=== PATIENT | female | born 1940 | race Caucasian/White ===

== ENCOUNTER 2017-04-29 17:59 | Inpatient (IN) | payer MEDICARE ==
[~2017-04-29] VITALS: Ht 157.5 cm; Wt 76.0 kg
[2017-04-29 18:11] VITALS: BP 129/97; PULSE 89; RESP 18; O2SAT 97
[2017-04-29] MEDS ORDERED: EMPA1TAB PO (18:26)
[2017-04-29] MEDS ORDERED: MULTTAB67 PO (18:26)
[2017-04-29] MEDS ORDERED: CALC1TAB87 PO (18:26)
[2017-04-29] MEDS ORDERED: ALBI1INJ2 SQ (18:26)
[2017-04-29] MEDS ORDERED: FERR324T4 PO (18:26)
[2017-04-29] MEDS ORDERED: GLUC100013 PO (18:26)
[2017-04-29] MEDS ORDERED: OMEP20TA93 PO (18:26)
[2017-04-29] MEDS ORDERED: LOVA40TA PO (18:26)
[2017-04-29] MEDS ORDERED: LISI-515 PO (18:26)
[2017-04-29] MEDS ORDERED: METF1000 PO (18:26)
[2017-04-29] MEDS ORDERED: GLIM4TAB PO (18:26)
--- NOTE | 2017-04-29 18:56 | PD ---
HPI Chief Complaint: Abdominal Pain Time Seen by Provider: 18:09 Travel History International Travel<30 days: No Contact w/Intl Traveler<30days: No Traveled to known affect area: No History of Present Illness HPI This patient has had 3 days of nausea vomiting and diarrhea. She went to an urgent care center a few days ago got nausea medicine. She went back today because she developed generalized weakness and also complains of epigastric pain. Severity is moderate. I advised her to come to the ER. No alleviating factors. No exacerbating factors. She has not had any chest pain. PFSH Past Medical History Cardiovascular Problems: Yes (HTN, high chol) High Cholesterol: Yes Diabetes: Yes Patient Takes Glucophage: Yes Hypertension: Yes Tetanus Vaccination: > 5 Years Influenza Vaccination: Yes Past Surgical History Cholecystectomy: Yes Eye Surgery: Yes (bilat cataracts ) Tonsillectomy: Yes Other Surgery: Yes (carotid "cleaned out" ) Social History Alcohol Use: Yes (rare) Tobacco Use: No Substance Use: No Allergies-Medications (Allergen,Severity, Reaction): Coded Allergies: Sulfa (Sulfonamide Antibiotics) (Unverified Allergy, Severe, 04/29/17) Uncoded Allergies: SULFA (Allergy, Unknown, 11/03/02) Reported Meds & Prescriptions Reported Meds & Active Scripts Active Reported Multiple Vitamin 1 Tab 1 Tab PO DAILY Glucosamine (Glucosamine Sulfate) 1,000 Mg Cap 1,000 Mg PO BID Calcium 600 with Vitamin D (Calcium Carbonate-Cholecalciferol) 600-400 mg-Unit Tab 2 Tab PO DAILY Calcium 600 with Vitamin D (Calcium Carbonate-Cholecalciferol) 600-400 mg-Unit Tab 1 Tab PO DAILY Ferrous Sulfate DR (Ferrous Sulfate) 324 Mg Tabdr 65 Mg PO DAILY Omeprazole 20 Mg Tab 20 Mg PO DAILY Glimepiride 4 Mg Tab 4 Mg PO BIDAC Metformin (Metformin HCl) 1,000 Mg Tab 1,000 Mg PO BIDPC Lovastatin 40 Mg Tab 40 Mg PO DAILY Lisinopril 20 Mg Tab 20 Mg PO BID Jardiance (Empagliflozin) 10 Mg Tab 10 Mg PO DAILY Tanzeum 4-Pack Inj (Albiglutide) 50 Mg Pfpen 50 Mg SQ Q7D Review of Systems General / Constitutional: No: Fever Eyes: No: Visual changes HENT: No: Headaches Cardiovascular: No: Chest Pain or Discomfort Respiratory: No: Shortness of Breath Gastrointestinal: Positive: Nausea, Vomiting, Diarrhea, Abdominal Pain Genitourinary: No: Dysuria Musculoskeletal: No: Pain Skin: No Rash Neurologic: No: Weakness Psychiatric: No: Depression Endocrine: No: Polydipsia Hematologic/Lymphatic: No: Easy Bruising Physical Exam Narrative GENERAL: Well-nourished, well-developed patient in no apparent distress. SKIN: Focused skin assessment reveals no rash and nodules. Skin is Warm and dry. HEAD: Atraumatic. Normocephalic. EYES: Pupils equal and round. No scleral icterus. No injection or drainage. ENT: No nasal bleeding or discharge. Mucous membranes pink and moist. NECK: Trachea midline. No JVD. CARDIOVASCULAR: Regular rate and rhythm. No murmur appreciated. RESPIRATORY: No accessory muscle use. Clear to auscultation. Breath sounds equal bilaterally. GASTROINTESTINAL: Abdomen soft, non-tender, nondistended. Hepatic and splenic margins not palpable. MUSCULOSKELETAL: No obvious deformities. No clubbing. No cyanosis. No edema. NEUROLOGICAL: Awake and alert. No obvious cranial nerve deficits. Motor grossly within normal limits. Normal speech. PSYCHIATRIC: Appropriate mood and affect; insight and judgment normal. Data Data Last Documented VS Vital Signs Date Time Temp Pulse Resp B/P (MAP) Pulse Ox O2 Delivery O2 Flow Rate FiO2 04/29/17 18:11 89 18 129/97 (108) 97 MDM Medical Decision Making Medical Screen Exam Complete: Yes Emergency Medical Condition: Yes Medical Record Reviewed: Yes Differential Diagnosis Differential diagnosis includes pancreatitis, biliary colic, hepatitis, GERD, peptic ulcer disease. Narrative Course I have reviewed the patient's electronic medical record. Patient had an EKG here that showed a sinus rhythm with a wide QRS complex suggesting bundle-branch block. I've ordered a workup which we'll start with lab studies and a chest x-ray and some telemetry monitoring Case checked out to the 7 PM physician to assist with disposition Manuelito Erickson MD Apr 29, 2017 18:56
[2017-04-29 19:16] LABS: AUTOMATED NEUTROPHIL # 9.7 TH/MM3 (1.8-7.7); BASOPHIL # 0.1 TH/MM3 (0-0.2); BASOPHIL % 0.9 % (0.0-2.0); EOSINOPHIL # 0.1 TH/MM3 (0-0.4); EOSINOPHIL % 0.4 % (0.0-4.0); HEMATOCRIT 46.7 % (35.0-46.0); HEMOGLOBIN 15.1 GM/DL (11.6-15.3); LYMPH % 16.9 % (9.0-44.0); LYMPHOCYTE # 2.2 TH/MM3 (1.0-4.8); MEAN CORPUSCULAR HEMOGLOBIN 29.7 PG (27.0-34.0); MEAN CORPUSCULAR HGB CONC 32.3 % (32.0-36.0); MEAN PLATELET VOLUME 9.7 FL (7.0-11.0); MONO % 8.5 % (0.0-8.0); MONOCYTE # 1.1 TH/MM3 (0-0.9); NEUT % 73.3 % (16.0-70.0); PLATELET COUNT 297 TH/MM3 (150-450); RED BLOOD COUNT 5.08 MIL/MM3 (4.00-5.30); RED CELL DISTRIBUTION WIDTH 11.9 % (11.6-17.2); WHITE BLOOD COUNT 13.2 TH/MM3 (4.0-11.0)
--- NOTE | 2017-04-29 19:18 | PD ---
Physical Exam Date Seen by Provider: Apr 29, 2017 Time Seen by Provider: 19:17 Narrative Accepted in transfer of care from Dr. Erickson GENERAL: Well-developed well-nourished female no acute distress no respiratory distress SKIN: Warm and dry. HEAD: Normocephalic. EYES: No scleral icterus. No injection or drainage. NECK: Supple, trachea midline. No JVD or lymphadenopathy. CARDIOVASCULAR: Regular rate and rhythm without murmurs, gallops, or rubs. Radial and dorsalis pedis pulses 2+ to palpation bilaterally. RESPIRATORY: Breath sounds equal bilaterally. No accessory muscle use. GASTROINTESTINAL: Abdomen soft, non-tender, nondistended. MUSCULOSKELETAL: No cyanosis, or edema. Data Data Last Documented VS Vital Signs Date Time Temp Pulse Resp B/P (MAP) Pulse Ox O2 Delivery O2 Flow Rate FiO2 04/29/17 20:04 87 16 132/65 (87) 98 Room Air Orders Orders Iv Access Insert/Monitor (04/29/17 18:52) Complete Blood Count With Diff (04/29/17 18:52) Ckmb (Isoenzyme) Profile (04/29/17 18:52) Troponin I (04/29/17 18:52) Chest, Single Ap (04/29/17 ) Comprehensive Metabolic Panel (04/29/17 18:52) Lipase (04/29/17 18:52) Yarn Inspector / Telemetry DEBORAH.Q8H (04/29/17 18:52) Ct Abd/Pel W/O Iv Contrast (04/29/17 ) Sodium Chlorid 0.9% 500 Ml Inj (Ns 500 M (04/29/17 20:30) Sodium Chlor 0.9% 1000 Ml Inj (Ns 1000 M (04/29/17 20:30) Lactic Acid (04/29/17 20:20) Blood Gas Venous Ph (04/29/17 20:20) NPO (04/29/17 20:20) Admit Order (Ed Use Only) (04/29/17 ) Yarn Inspector / Telemetry DEBORAH.Q8H (04/29/17 20:32) Diet Npo (04/30/17 Breakfast) Activity Bed Rest (04/29/17 20:32) Notify Dr: Other (04/29/17 20:32) Labs Laboratory Tests Test 04/29/17 19:00 04/29/17 20:30 White Blood Count 13.2 TH/MM3 Red Blood Count 5.08 MIL/MM3 Hemoglobin 15.1 GM/DL Hematocrit 46.7 % Mean Corpuscular Volume 92.0 FL Mean Corpuscular Hemoglobin 29.7 PG Mean Corpuscular Hemoglobin Concent 32.3 % Red Cell Distribution Width 11.9 % Platelet Count 297 TH/MM3 Mean Platelet Volume 9.7 FL Neutrophils (%) (Auto) 73.3 % Lymphocytes (%) (Auto) 16.9 % Monocytes (%) (Auto) 8.5 % Eosinophils (%) (Auto) 0.4 % Basophils (%) (Auto) 0.9 % Neutrophils # (Auto) 9.7 TH/MM3 Lymphocytes # (Auto) 2.2 TH/MM3 Monocytes # (Auto) 1.1 TH/MM3 Eosinophils # (Auto) 0.1 TH/MM3 Basophils # (Auto) 0.1 TH/MM3 CBC Comment DIFF FINAL Differential Comment Blood Urea Nitrogen 57 MG/DL Creatinine 2.50 MG/DL Random Glucose 295 MG/DL Total Protein 8.1 GM/DL Albumin 3.5 GM/DL Calcium Level 9.3 MG/DL Alkaline Phosphatase 143 U/L Aspartate Amino Transf (AST/SGOT) 25 U/L Alanine Aminotransferase (ALT/SGPT) 38 U/L Total Bilirubin 0.3 MG/DL Sodium Level 132 MEQ/L Potassium Level 4.9 MEQ/L Chloride Level 103 MEQ/L Carbon Dioxide Level 14.7 MEQ/L Anion Gap 14 MEQ/L Estimat Glomerular Filtration Rate 19 ML/MIN Total Creatine Kinase 34 U/L Troponin I LESS THAN 0.02 NG/ML Lipase 1082 U/L Urine Collection Type CATH Urine Color YELLOW Urine Turbidity CLOUDY Urine pH 5.0 Urine Specific Rosalie 1.025 Urine Protein 30 mg/dL Urine Glucose (UA) 1000 OR GREATER mg/dL Urine Ketones NEG mg/dL Urine Occult Blood MOD Urine Nitrite NEG Urine Bilirubin NEG Urine Urobilinogen 0.2 MG/DL Urine Leukocyte Esterase MOD Urine RBC 0-3 /hpf Urine WBC 100-200 /hpf Urine WBC Clumps MOD Urine Squamous Epithelial Cells 0-5 /hpf Urine Bacteria MANY /hpf Urine Hyaline Casts 6-9 /lpf Urine Mucus OCC /lpf Urine Yeast (Budding) MOD Microscopic Urinalysis Comment CATH-CULTURE IND MDM Medical Record Reviewed: Yes Supervised Visit with CHANDA: No Interpretation(s) EKG normal sinus rhythm rate 95 left axis deviation left bundle branch block trop: less than 0.02, not elevated Last Impressions Chest X-Ray 04/29/17 0000 Signed Impressions: Service Date/Time: Saturday, April 29, 2017 18:55 - CONCLUSION: The lungs are clear. Harpreet Arnold MD CBC & BMP Diagram 04/29/17 19:00 Total Protein 8.1, Albumin 3.5, Calcium Level 9.3, Alkaline Phosphatase 143 H, Aspartate Amino Transf (AST/SGOT) 25, Alanine Aminotransferase (ALT/SGPT) 38, Total Bilirubin 0.3 Vital Signs Date Time Temp Pulse Resp B/P (MAP) Pulse Ox O2 Delivery O2 Flow Rate FiO2 04/29/17 20:04 87 16 132/65 (87) 98 Room Air 04/29/17 18:11 89 18 129/97 (108) 97 lipase: 1082, elevated Differential Diagnosis Accepted in transfer of care from Dr. Erickson; please refer to his dictation Narrative Course Accepted in transfer of care from Dr. Erickson; follow up of pending diagnostics and disposition; pain 0/10. Patient resting comfortably waiting on lab results; no nausea no pain CBC with automated differential mild leukocytosis white count 13,000 Metabolic panel remarkable for hyperglycemia 295 glucose with renal insufficiency age-indeterminate possible acute kidney injury BUN is 57 with a creatinine of 2.50 comparison labs from 12/12/2010 BUN is 24 creatinine 1.05 patient is also noticed to have a bicarb of 14.7 with normal range anion gap; LFTs pending, lipase pending EKG left bundle branch block age-indeterminate (comparison EKG performed in 2005 no evidence of bundle branch block patient underwent tilt testing 2002 and identified to have neurocardiogenic syndrome) Lipase elevated at 1082, total bilirubin and transaminase values are in normal range alkaline phosphatase is mildly elevated at 143 Patient informed of lab results imaging results and EKG patient's abdomen is soft nontender continues to deny any discomfort/pain and no nausea; patient is aware of plan to obtain CT abdomen pelvis noncontrast as well as some additional lab work and will be admitted to the hospital for IV fluids and bowel rest and further investigation into abdominal pain. Patient is agreeable to admission. Patient's case discussed with on-call [facility] physician Dr. Leeroy Beckwith who requests patient to have urinary catheter inserted is aware that CT abdomen and pelvis has been ordered and remains pending and IV fluids have been ordered. @ 22:00 patient reports now abdominal discomfort is 3/10 and bladder discomfort after urinary catheter is 8/10; patient administered Zofran 4 mg IV and Morphine 2 mg IV. Lactic acid resulted as 2.1 --may reflect dehydration ( vomiting, diarrhea, poor oral intake), renal dysfunction, sepsis, and metformin use as well. Physician Communication Physician Communication discussed with Dr Romero; CT pending Diagnosis Primary Impression: Pancreatitis Qualified Codes: K85.90 - Acute pancreatitis without necrosis or infection, unspecified Additional Impressions: JULIAN (acute kidney injury) Diabetes Qualified Codes: E11.65 - Type 2 diabetes mellitus with hyperglycemia; Z79.4 - ferry terminal supervisor (current) use of insulin Admitting Information Admitting Physician Requests: Admit Vane Joaquin MD Apr 29, 2017 19:18
[2017-04-29 19:34] LABS: CHLORIDE 103 MEQ/L (98-107); SODIUM (NA) 132 MEQ/L (136-145)
[2017-04-29 19:38] LABS: ALBUMIN 3.5 GM/DL (3.4-5.0); BICARBONATE 14.7 MEQ/L (21.0-32.0); BLOOD UREA NITROGEN 57 MG/DL (7-18); CALCIUM 9.3 MG/DL (8.5-10.1); GLUCOSE,RANDOM 295 MG/DL (74-106)
[2017-04-29 19:41] LABS: ALT (GPT) 38 U/L (10-53); AST (GOT) 25 U/L (15-37); GLOMERULAR FILTRATION RATE 19 ML/MIN (>89)
[2017-04-29 19:43] LABS: TOTAL BILIRUBIN ADULT 0.3 MG/DL (0.2-1.0); TOTAL PROTEIN 8.1 GM/DL (6.4-8.2)
[2017-04-29 19:44] LABS: ALKALINE PHOSPHATASE 143 U/L (45-117)
[2017-04-29 19:46] LABS: TROPONIN I LESS THAN 0.02 NG/ML (0.02-0.05)
--- NOTE | 2017-04-29 19:50 | RADRPT ---
EXAM DATE/TIME: 04/29/2017 18:55 [facility] COMPARISON: No previous studies available for comparison. INDICATIONS : Shortness of breath. MEDICAL HISTORY : None. SURGICAL HISTORY : None. ENCOUNTER: Initial ACUITY: 1 day PAIN SCORE: 0/10 LOCATION: Bilateral chest FINDINGS: A single view of the chest demonstrates the lungs to be symmetrically aerated without evidence of mas s, infiltrate or effusion. The cardiomediastinal contours are unremarkable. Osseous structures are intact. CONCLUSION: The lungs are clear. Harpreet Arnold MD on April 29, 2017 at 19:49 Board Certified Radiologist. This report was verified electronically.
[2017-04-29 20:04] VITALS: BP 132/65; PULSE 87; RESP 16; O2SAT 98
[2017-04-29] MEDS ORDERED: SODIUM CHLOR 0.9% 1000 ML INJ 1,000 ML IV SCH (20:30)
[2017-04-29] MEDS ORDERED: SODIUM CHLORID 0.9% 500 ML INJ 500 ML IV ONE ×2 (20:30→20:45)
[2017-04-29 20:59] LABS: BILIRUBIN, URINE NEG (NEG); BLOOD, URINE MOD (NEG); GLUCOSE,URINE 1000 OR GREATER mg/dL (NEG); KETONE, URINE NEG (NEG); NITRITE,URINE NEG (NEG); URINE COLOR YELLOW (YELLW/STRAW); URINE LEUKOCYTE ESTERASE MOD (NEG)
[2017-04-29 21:09] LABS: MUCUS URINE OCC /lpf (OCC)
[2017-04-29 21:10] LABS: BACTERIA, URINE MANY /hpf; SQUAMOUS EPITHELIAL CELL URINE 0-5 /hpf (0-5); WBC, URINE 100-200 /hpf (0-5)
[2017-04-29 21:11] LABS: RBC, URINE 0-3 /hpf (0-3); WHITE BLOOD CELL CLUMPS MOD
[2017-04-29 21:45] VITALS: BP 144/62; PULSE 78; RESP 16; O2SAT 99
--- NOTE | 2017-04-29 22:05 | RADRPT ---
EXAM DATE/TIME: 04/29/2017 21:08 [facility] COMPARISON: No previous studies available for comparison. INDICATIONS : Elevated lipase. Lower abdominal pain. Nausea, vomiting and diarrhea. ORAL CONTRAST: No oral contrast ingested. RADIATION DOSE: 17.22 CTDIvol (mGy) MEDICAL HISTORY : Hypertension. Diabetes mellitus type 2. SURGICAL HISTORY : Cholecystectomy. ENCOUNTER: Initial ACUITY: 3 days PAIN SCALE: 7/10 LOCATION: Bilateral lower quadrant TECHNIQUE: Volumetric scanning of the abdomen and pelvis was performed. Using automated exposure control and ad justment of the mA and/or kV according to patient size, radiation dose was kept as low as reasonably achievable to obtain optimal diagnostic quality images. DICOM format image data is available electro nically for review and comparison. FINDINGS: LOWER LUNGS: The visualized lower lungs are clear. LIVER: Homogeneous density without lesion for noncontrast technique. There is no dilation of the biliary tr ee. Cholecystectomy. SPLEEN: Normal size without lesion. PANCREAS: Within normal limits. KIDNEYS: Normal in size and shape. There is no mass, stone, or hydronephrosis. ADRENAL GLANDS: Within normal limits. VASCULAR: There is no aortic aneurysm. BOWEL/MESENTERY: The stomach, small bowel, and colon demonstrate no acute abnormality. The appendix is identified in the right lower quadrant and has a normal configuration. There is no free intraperitoneal air or flui d. ABDOMINAL WALL: Within normal limits. RETROPERITONEUM: There is no lymphadenopathy. BLADDER: Armstrong catheter in a nondistended bladder. REPRODUCTIVE: Within normal limits. INGUINAL: There is no lymphadenopathy or hernia. MUSCULOSKELETAL: Hypertrophic degenerative changes in the posterior elements at L5-S1. CONCLUSION: No acute findings. Pancreas has a normal appearance. No dilated loops of small or large bowel. Harpreet Arnold MD on April 29, 2017 at 22:00 Board Certified Radiologist. This report was verified electronically.
[2017-04-29] MEDS ORDERED: GLUCAGON 1 MG/ML VIAL OTHER PRN (22:15)
[2017-04-29] MEDS ORDERED: DEXTROSE 50% IN WATER 50 ML VIAL(D50) IV PUSH PRN (22:15)
[2017-04-29] MEDS: ONDANSETRON HCL 4 MG/2 ML VIAL IV PUSH PRN (22:19)
[2017-04-29] MEDS: PANTOPRAZOLE SODIUM 40 MG VIAL IV PUSH SCH (22:19)
[2017-04-29] MEDS: cefTRIAXone INJ 1,000 MG in SODIUM CHLORIDE 0.9% INJ 100 ML IV SCH (22:19)
[2017-04-29 22:30] VITALS: BP 138/70; PULSE 82; RESP 18; O2SAT 99
[2017-04-29 23:10] VITALS: BP 135/74
[2017-04-29] MEDS: SODIUM CHLOR 0.9% 1000 ML INJ 1,000 ML IV SCH (23:40)
[2017-04-30] VITALS (7 sets, daily range): BP systolic 130–168; BP diastolic 56–70; PULSE 63–90; RESP 18–20; TEMP 97.7–98.2; O2SAT 95–100
[2017-04-30] MEDS: ACETAMINOPHEN/HYDROcodone 325 MG/5 MG TAB PO PRN ×3 (00:22→22:01)
[2017-04-30] MEDS ORDERED: INSULIN ASPART SUPPLEMENTAL SCALE SQ SCH (00:30)
[2017-04-30] MEDS: TEMAZEPAM 15 MG CAP PO PRN ×2 (01:07→21:57)
[2017-04-30] MEDS: SODIUM CHLOR 0.9% 1000 ML INJ 1,000 ML IV SCH ×3 (05:56→22:00)
[2017-04-30] MEDS: INSULIN ASPART SUPPLEMENTAL SCALE SQ SCH ×4 (08:00→21:59)
--- NOTE | 2017-04-30 08:37 | MH ---
cc: Lucrecia Romero MD DATE OF ADMISSION: 04/29/2017 ADMITTING DIAGNOSIS: Pancreatitis. HISTORY OF PRESENT ILLNESS: Ms. Painter presents to the Emergency Room after having at least 1 week history of abdominal discomfort, nausea and emesis. She does say that she had some diarrhea as well, but according to her, she normally has diarrhea from her diabetic medications. She states that she has been unable to keep food down, even though she has tried eating during this time period. She has not been able to keep down much liquids. She is diabetic and has continued taking her diabetic medication. She has had increased amount of reflux during this time. She denies any chest pain, but she does say that she has been feeling more short of breath. She has not been taking any new medications. She does have a prior history of cholecystectomy. She states that she has also been having back pain across her shoulders and into her left shoulder. During this period, she did go to Urgent Care where they evaluated her, and based on her symptoms and they did an EKG, they sent her to the Emergency Room. She does deny any prior history of cardiac disease. She does say that she has a history of carotid endarterectomy in the past. She is diabetic and is on multiple medications. She has been diabetic since her 50s. PAST MEDICAL HISTORY: Significant for type 2 diabetes, hypertension, hyperlipidemia, reflux. PAST SURGICAL HISTORY: Significant for cholecystectomy and carotid endarterectomy as well as cataract surgery. ALLERGIES: SHE IS ALLERGIC TO SULFA. MEDICATIONS: Include: Ferrous sulfate. She does have a prior history of anemia for which she saw Dr. Bailey in the past. Lovastatin 40 mg daily, lisinopril 20 mg twice a day, calcium carbonate, calcium and vitamin D, omeprazole 20 mg daily, metformin 1000 mg twice a day, Tanzeum 50 mg subcutaneously once a week, Jardiance 10 mg daily, glimepiride 4 mg twice a day, multivitamins and glucosamine. HABITS: She rarely consumes alcohol. She no longer smokes. 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 She lives alone. She lives here local in [facility]. She has a niece who is in the room with her. She is independent in her activities of daily living. REVIEW OF SYSTEMS: See HPI. She denies any actual chest pain or palpitations. She does state the shortness of breath, no cough. Abdominal pain is noted. She actually says it is throughout her entire abdomen. She does have diarrhea at times, which she blames on her metformin. She has no swelling in her feet. She does say her feet get cold at times. She normally urinates well. PHYSICAL EXAMINATION: VITAL SIGNS: Pulse of 87, respirations 16, blood pressure is 132/65. Pulse ox 98% on room air. GENERAL: This is a very pleasant woman lying in the Emergency Room cot. She does look a little bit uncomfortable. HEENT: She is normocephalic, atraumatic. EOM intact. She has very dry lips. NECK: Supple. CHEST: I do not hear any bruits. RESPIRATORY: Her lungs are clear to auscultation bilaterally. No rhonchi, rales or wheezes. CARDIOVASCULAR: Her heart is regular. She is not tachycardic. GASTROINTESTINAL: Abdomen has bowel sounds throughout all 4 quadrants. She does have some midepigastric tenderness to palpation. Mild diffuse tenderness throughout the rest. EXTREMITIES: No clubbing, cyanosis or edema. She is tender primarily along her left scapular area. LABORATORY DATA: White count 13.2, hemoglobin of 15.1, hematocrit of 46.7, platelet count of 297. Neutrophils were 73.3. Venous pH was done, which was 7.33. Sodium was 132, potassium 4.9. Carbon dioxide was 14.7. Anion gap was 14. BUN was 57. Creatinine was 2.5. Her GFR was 19. Random glucose was 295. A lactic acid was done, which was 2.1. Alkaline phosphatase was 143. The rest of the liver enzymes were normal. Her troponin was less than 0.02. Lipase was 1082. Her UA was cloudy with 1000 or greater glucose. She did have some occult blood and many bacteria. Urine culture is pending. RADIOLOGY: Chest x-ray had clear lungs. CT scan of the abdomen was done, showed no acute findings. Pancreas had a normal appearance. No loops of small or large bowel. ASSESSMENT AND PLAN: 1. A 76-year-old female presenting with abdominal pain, nausea and vomiting with apparent pancreatitis. At this point, she has been admitted for IV fluids and bowel rest. 2. Acute kidney injury. I think this is multifactorial, probably due to the effect of the nausea and vomiting and the dehydration, as well as secondary to the medication she was taking and not being able to keep herself hydrated. We are going to withhold her medications, try to hydrate her aggressively. 3. Diabetes. We will cover her with sliding scale insulin, at least for the next 12 to 14 hours, monitoring the response to her sugars and her renal function. 4. Terms of her hypertension, when I was examining her on the monitor, her blood pressure was running in the low teens, so at this point, I am going to hold her lisinopril. Further recommendations as the case develops. Lucrecia Romero MD DUARTE/DL , 10:35 PM , 08:36 AM
[2017-04-30 11:28] LABS: AUTOMATED NEUTROPHIL # 5.5 TH/MM3 (1.8-7.7); BASOPHIL % 0.4 % (0.0-2.0); EOSINOPHIL # 0.1 TH/MM3 (0-0.4); EOSINOPHIL % 1.3 % (0.0-4.0); HEMATOCRIT 36.9 % (35.0-46.0); HEMOGLOBIN 12.9 GM/DL (11.6-15.3); LYMPH % 24.8 % (9.0-44.0); LYMPHOCYTE # 2.1 TH/MM3 (1.0-4.8); MEAN CELL VOLUME 91.8 FL (80.0-100.0); MEAN CORPUSCULAR HGB CONC 34.9 % (32.0-36.0); MEAN PLATELET VOLUME 8.7 FL (7.0-11.0); MONO % 8.8 % (0.0-8.0); MONOCYTE # 0.7 TH/MM3 (0-0.9); NEUT % 64.7 % (16.0-70.0); PLATELET COUNT 184 TH/MM3 (150-450); RED BLOOD COUNT 4.03 MIL/MM3 (4.00-5.30); RED CELL DISTRIBUTION WIDTH 12.2 % (11.6-17.2); WHITE BLOOD COUNT 8.4 TH/MM3 (4.0-11.0)
[2017-04-30 12:15] LABS: ALBUMIN 2.6 GM/DL (3.4-5.0); ALKALINE PHOSPHATASE 110 U/L (45-117); ALT (GPT) 30 U/L (10-53); AST (GOT) 19 U/L (15-37); BICARBONATE 17.7 MEQ/L (21.0-32.0); BLOOD UREA NITROGEN 41 MG/DL (7-18); CALCIUM 7.8 MG/DL (8.5-10.1); CHLORIDE 115 MEQ/L (98-107); GLOMERULAR FILTRATION RATE 34 ML/MIN (>89); GLUCOSE,RANDOM 113 MG/DL (74-106); SODIUM (NA) 140 MEQ/L (136-145); TOTAL BILIRUBIN ADULT 0.3 MG/DL (0.2-1.0); TOTAL PROTEIN 6.2 GM/DL (6.4-8.2)
--- NOTE | 2017-04-30 12:33 | HHI.PR ---
Subjective Remarks feeling better, pain is in shoulder not abdomen, no dry heaves Objective Vitals Vital Signs Date Time Temp Pulse Resp B/P (MAP) Pulse Ox O2 Delivery O2 Flow Rate FiO2 04/30/17 08:24 63 04/30/17 08:00 97.9 79 18 144/65 (91) 98 04/30/17 01:45 90 04/30/17 00:00 98.1 87 18 168/70 (102) 95 04/29/17 23:10 88 16 135/74 (94) 97 04/29/17 22:30 82 18 138/70 (92) 99 04/29/17 21:45 78 16 144/62 (89) 99 04/29/17 20:04 87 16 132/65 (87) 98 Room Air 04/29/17 18:11 89 18 129/97 (108) 97 Result Diagram: 04/30/17 1030 04/30/17 1030 A/P Problem List: (1) Pancreatitis ICD Codes: K85.90 - Acute pancreatitis without necrosis or infection, unspecified Status: Acute Plan: clinically improving progress diet decrease iv fluids (2) Diabetes ICD Codes: E11.9 - Type 2 diabetes mellitus without complications Status: Acute Plan: cont ssi (3) JULIAN (acute kidney injury) ICD Codes: N17.9 - Acute kidney failure, unspecified Status: Acute Plan: renal function improving with hydration, monitor Problem Qualifiers (1) Pancreatitis: Qualified Codes: K85.90 - Acute pancreatitis without necrosis or infection, unspecified (2) Diabetes: Qualified Codes: E11.65 - Type 2 diabetes mellitus with hyperglycemia; Z79.4 - exterminator helper (current) use of insulin Lucrecia Romero MD Apr 30, 2017 12:33
[2017-04-30] MEDS: ACETAMINOPHEN/HYDROcodone 325 MG/10 MG TAB PO PRN (21:57)
[2017-04-30] MEDS: cefTRIAXone INJ 1,000 MG in SODIUM CHLORIDE 0.9% INJ 100 ML IV SCH (21:58)
[2017-04-30] MEDS: PANTOPRAZOLE SODIUM 40 MG VIAL IV PUSH SCH (22:00)
[2017-05-01] VITALS (7 sets, daily range): BP systolic 115–160; BP diastolic 55–71; PULSE 72–122; RESP 20; TEMP 96.3–98.3; O2SAT 95–99
[2017-05-01] MEDS: SODIUM CHLOR 0.9% 1000 ML INJ 1,000 ML IV SCH ×2 (06:33→16:00)
[2017-05-01 06:53] LABS: AUTOMATED NEUTROPHIL # 3.2 TH/MM3 (1.8-7.7); BASOPHIL # 0.1 TH/MM3 (0-0.2); BASOPHIL % 0.9 % (0.0-2.0); EOSINOPHIL # 0.2 TH/MM3 (0-0.4); EOSINOPHIL % 2.6 % (0.0-4.0); HEMATOCRIT 35.1 % (35.0-46.0); HEMOGLOBIN 12.2 GM/DL (11.6-15.3); MEAN CELL VOLUME 91.7 FL (80.0-100.0); MEAN CORPUSCULAR HEMOGLOBIN 31.9 PG (27.0-34.0); MEAN CORPUSCULAR HGB CONC 34.8 % (32.0-36.0); MEAN PLATELET VOLUME 8.9 FL (7.0-11.0); MONO % 9.2 % (0.0-8.0); MONOCYTE # 0.6 TH/MM3 (0-0.9); NEUT % 55.3 % (16.0-70.0); PLATELET COUNT 186 TH/MM3 (150-450); RED BLOOD COUNT 3.83 MIL/MM3 (4.00-5.30); RED CELL DISTRIBUTION WIDTH 12.4 % (11.6-17.2); WHITE BLOOD COUNT 6.1 TH/MM3 (4.0-11.0)
--- NOTE | 2017-05-01 06:53 | EKG ---
Date Performed: 04/29/2017 Time Performed: 18:04:23 PTAGE: 76 years EKG: Sinus rhythm WITH SINUS ARRHYTHMIA MARKED LEFT AXIS DEVIATION LEFT BUNDLE BRANCH BLOCK ABNORMAL ECG Compared to PREVIOUS TRACING , left bundle branch block is new. PREVIOUS TRACING 06/01/2005 19.3 0.30 DOCTOR: Octaviano Bro Interpretating Date/Time 05/01/2017 06:52:13
[2017-05-01 07:07] LABS: CHLORIDE 115 MEQ/L (98-107); SODIUM (NA) 141 MEQ/L (136-145)
[2017-05-01 07:13] LABS: ALBUMIN 2.5 GM/DL (3.4-5.0); BICARBONATE 17.3 MEQ/L (21.0-32.0); CALCIUM 8.1 MG/DL (8.5-10.1); GLUCOSE,RANDOM 117 MG/DL (74-106)
[2017-05-01 07:23] LABS: ALKALINE PHOSPHATASE 103 U/L (45-117); ALT (GPT) 32 U/L (10-53); AST (GOT) 25 U/L (15-37); BLOOD UREA NITROGEN 24 MG/DL (7-18); GLOMERULAR FILTRATION RATE 48 ML/MIN (>89); TOTAL BILIRUBIN ADULT 0.2 MG/DL (0.2-1.0); TOTAL PROTEIN 5.8 GM/DL (6.4-8.2)
[2017-05-01] MEDS: INSULIN ASPART SUPPLEMENTAL SCALE SQ SCH ×4 (08:00→21:42)
[2017-05-01] MEDS: ACETAMINOPHEN/HYDROcodone 325 MG/10 MG TAB PO PRN ×3 (08:32→17:46)
--- NOTE | 2017-05-01 12:17 | HHI.PR ---
Subjective Remarks Progressing diet, still some abdominal pain but better then yesterday ambulating in room Objective Vitals Vital Signs Date Time Temp Pulse Resp B/P (MAP) Pulse Ox O2 Delivery O2 Flow Rate FiO2 05/01/17 11:56 96.3 78 20 138/63 (88) 98 05/01/17 09:32 20 05/01/17 08:00 75 05/01/17 07:50 97.0 78 20 134/59 (84) 98 05/01/17 04:00 97.6 78 20 123/57 (79) 95 05/01/17 00:00 98.3 122 20 115/55 (75) 95 Manual Cuff/Auscultation 04/30/17 20:00 81 04/30/17 20:00 98.2 79 20 130/56 (80) 100 Automatic Cuff 04/30/17 16:00 97.8 82 18 133/66 (88) 99 Result Diagram: 05/01/17 0545 05/01/17 0545 Imaging Last Impressions Chest X-Ray 04/29/17 0000 Signed Impressions: Service Date/Time: Saturday, April 29, 2017 18:55 - CONCLUSION: The lungs are clear. Harpreet Arnold MD Abdomen/Pelvis CT 04/29/17 0000 Signed Impressions: Service Date/Time: Saturday, April 29, 2017 21:08 - CONCLUSION: No acute findings. Pancreas has a normal appearance. No dilated loops of small or large bowel. Harpreet Arnold MD Objective Remarks Sitting at bedside nad lungs cta heart rrr good bowel sounds, s&d, midepigastric tenderness to palpation no edema A/P Problem List: (1) Pancreatitis ICD Codes: K85.90 - Acute pancreatitis without necrosis or infection, unspecified Status: Acute Plan: clinically improving progressed diet decrease iv fluids (2) Diabetes ICD Codes: E11.9 - Type 2 diabetes mellitus without complications Status: Acute Plan: cont ssi off jardience and metformin had eu day prior to admission has appt with endo this saturday (3) JULIAN (acute kidney injury) ICD Codes: N17.9 - Acute kidney failure, unspecified Status: Acute Plan: renal function improving with hydration, monitor (4) UTI (urinary tract infection) ICD Codes: N39.0 - Urinary tract infection, site not specified Status: Acute Plan: E.Coli sensitive to rocephin Assessment and Plan plan to d/c in am melany if tolerates po today Problem Qualifiers (1) Pancreatitis: Qualified Codes: K85.90 - Acute pancreatitis without necrosis or infection, unspecified (2) Diabetes: Qualified Codes: E11.65 - Type 2 diabetes mellitus with hyperglycemia; Z79.4 - oil heaterman (current) use of insulin (3) UTI (urinary tract infection): Qualified Codes: N30.00 - Acute cystitis without hematuria Lucrecia Romero MD May 01, 2017 12:17
[2017-05-01] MEDS: ONDANSETRON HCL 4 MG/2 ML VIAL IV PUSH PRN (19:57)
[2017-05-01] MEDS: PANTOPRAZOLE SODIUM 40 MG VIAL IV PUSH SCH (21:37)
[2017-05-01] MEDS: cefTRIAXone INJ 1,000 MG in SODIUM CHLORIDE 0.9% INJ 100 ML IV SCH (21:38)
[2017-05-02] VITALS: BP 153/64; PULSE 85; RESP 20; TEMP 97.4; O2SAT 99
[2017-05-02] MEDS: SODIUM CHLOR 0.9% 1000 ML INJ 1,000 ML IV SCH ×2 (00:36→13:29)
[2017-05-02 05:47] LABS: CHLORIDE 115 MEQ/L (98-107); SODIUM (NA) 142 MEQ/L (136-145)
[2017-05-02 05:53] LABS: ALBUMIN 2.5 GM/DL (3.4-5.0); BICARBONATE 19.7 MEQ/L (21.0-32.0); BLOOD UREA NITROGEN 15 MG/DL (7-18); CALCIUM 7.9 MG/DL (8.5-10.1); GLUCOSE,RANDOM 164 MG/DL (74-106)
[2017-05-02 05:56] LABS: ALT (GPT) 35 U/L (10-53); AST (GOT) 24 U/L (15-37)
[2017-05-02 05:57] LABS: CREATININE 0.97 MG/DL (0.50-1.00); GLOMERULAR FILTRATION RATE 56 ML/MIN (>89)
[2017-05-02 05:58] LABS: TOTAL BILIRUBIN ADULT 0.2 MG/DL (0.2-1.0); TOTAL PROTEIN 5.8 GM/DL (6.4-8.2)
[2017-05-02 05:59] LABS: ALKALINE PHOSPHATASE 120 U/L (45-117)
[2017-05-02 07:50] VITALS: BP 169/88; PULSE 70; RESP 20; TEMP 97.9; O2SAT 98
[2017-05-02] MEDS: INSULIN ASPART SUPPLEMENTAL SCALE SQ SCH ×2 (07:54→12:26)
--- NOTE | 2017-05-02 10:57 | HHI.PR ---
Subjective Remarks Abdomen tender but better today. 1 epsiode of emesis last night after dinner but tolerated breakfast so far (scarmbled eggs and oliver) Objective Vitals Vital Signs Date Time Temp Pulse Resp B/P (MAP) Pulse Ox O2 Delivery O2 Flow Rate FiO2 05/02/17 07:50 97.9 70 20 169/88 (115) 98 05/02/17 00:00 97.4 85 20 153/64 (93) 99 05/01/17 20:00 97.6 88 20 160/71 (100) 98 05/01/17 15:50 98.3 72 20 144/63 (90) 99 05/01/17 14:03 20 05/01/17 11:56 96.3 78 20 138/63 (88) 98 Result Diagram: 05/01/17 0545 05/02/17 0449 Imaging Last Impressions Chest X-Ray 04/29/17 0000 Signed Impressions: Service Date/Time: Saturday, April 29, 2017 18:55 - CONCLUSION: The lungs are clear. Harpreet Arnold MD Abdomen/Pelvis CT 04/29/17 0000 Signed Impressions: Service Date/Time: Saturday, April 29, 2017 21:08 - CONCLUSION: No acute findings. Pancreas has a normal appearance. No dilated loops of small or large bowel. Harpreet Arnold MD Objective Remarks Lying in bed no acute discuss lungs cta heart rrr abodmen good bowel sounds minimal tenderness to palpation no c/c/e A/P Problem List: (1) Pancreatitis ICD Codes: K85.90 - Acute pancreatitis without necrosis or infection, unspecified Status: Acute Plan: clinically improving progressed diet decrease iv fluids if tolerates lunch will discharge in the afternoon (2) Diabetes ICD Codes: E11.9 - Type 2 diabetes mellitus without complications Status: Acute Plan: cont ssi will resume metformin, she has appt with Dr Fadi wise (3) JULIAN (acute kidney injury) ICD Codes: N17.9 - Acute kidney failure, unspecified Status: Resolved Plan: renal function back to baseline (4) UTI (urinary tract infection) ICD Codes: N39.0 - Urinary tract infection, site not specified Status: Acute Plan: E.Coli sensitive to rocephin Assessment and Plan plan to d/c later today Problem Qualifiers (1) Pancreatitis: Qualified Codes: K85.90 - Acute pancreatitis without necrosis or infection, unspecified (2) Diabetes: Qualified Codes: E11.65 - Type 2 diabetes mellitus with hyperglycemia; Z79.4 - half-way (current) use of insulin (3) UTI (urinary tract infection): Qualified Codes: N30.00 - Acute cystitis without hematuria Lucrecia Romero MD May 02, 2017 10:57
[2017-05-02] MEDS ORDERED: DOCUSATE SODIUM 50 MG/SENNA 8.6 MG TAB PO ONE (11:00)
[2017-05-02] MEDS ORDERED: LISINOPRIL 20 MG TAB PO SCH (11:00)
[2017-05-02 11:50] VITALS: BP 171/75; PULSE 69; RESP 20; TEMP 96.5; O2SAT 99
[2017-05-02 15:53] VITALS: BP 165/73; PULSE 68; RESP 20; TEMP 97.2; O2SAT 99
== END 2017-05-02 17:08 | disposition home or self-care (01) | DRG 439 ==
LOC: PHED 17:59 → PHEDA 20:33 → PH3B 22:57
PROVIDERS: ADMIT Legal Medicine; ATTEND Legal Medicine
DX: K85.90 Acute pancreatitis without necrosis or infection, unspecified (principal); N17.9 Acute kidney failure, unspecified; E11.65 Type 2 diabetes mellitus with hyperglycemia; E86.0 Dehydration; N39.0 Urinary tract infection, site not specified; Z79.84 Long term (current) use of oral hypoglycemic drugs; B96.20 Unspecified Escherichia coli [E. coli] as the cause of diseases classified elsewhere; K21.9 Gastro-esophageal reflux disease without esophagitis; I10 Essential (primary) hypertension; E78.5 Hyperlipidemia, unspecified; Z90.49 Acquired absence of other specified parts of digestive tract; Z87.891 Personal history of nicotine dependence
CPT/HCPCS: 71045; 74176; 80053; 81001; 82550; 82800; 82948; 83605; 83690; 84484; 85025; 87077; 87086; 87186; 93005; C9113; J0696; J1815; J2405; J7030; J7040